=== PATIENT | female | born 1960 | race Caucasian/White ===

== ENCOUNTER → 2024-09-02 | Outpatient (CLI) | payer OTHER ==
--- NOTE | 2024-09-02 16:56 | MR ---
EXAMINATION TYPE: MR knee RT wo con DATE OF EXAM: 09/02/2024 3:09 PM COMPARISON: None. CLINICAL INDICATION: Female, 64 years old with history of M22.42 CHONDROMALACIA PATELLAE, LEFT KNEE; M42.41, Right knee pain and swelling x2 yrs but worse now, Pain also behind rt knee, Chondromalacia o f RT patella IV Contrast: cc (None if empty) TECHNIQUE: Multiplanar, multisequence imaging of the right knee is performed without IV contrast. FINDINGS: There is a small joint effusion and a 18 x 8 mm Fleming's cyst. There is no bone contusion or fracture. There is a mild strain of the medial collateral ligament. The cruciate ligaments and lateral collater al ligaments are intact. There is a tear of the body of the medial meniscus. The lateral meniscus is intact.. The articular cartilages within the medial and lateral compartments are well preserved and there is n o significant degeneration. There is mild narrowing of the patellar cartilage. There is abnormal signal intensity in the cartilag e of the lateral facet consistent with chondromalacia patella. There is subchondral edema/cystic vasquez ges in the mid patella with fissuring of the overlying cartilage. The quadriceps and patellar tendons are intact. The anterior fat pads are normal. IMPRESSION: 1. Chondromalacia patella with additional fissuring of the patellar cartilage with subchondral duarte es within the patella as described above. 2. Tear of the body of the medial meniscus. 3. Mild strain of the medial collateral ligament. 4. Small joint effusion and small Fleming cyst [facility], , 09/02/2024 4:54 PM
--- NOTE | 2024-09-03 22:51 | MR ---
EXAMINATION TYPE: MR knee LT wo con DATE OF EXAM: 09/02/2024 COMPARISON: NONE HISTORY: Left knee pain and swelling x2 yrs but worse now, Chondromalacia of Lt patella, TECHNIQUE: Multiplanar, multisequence images of the knee is performed without IV contrast. FINDINGS: MEDIAL MENISCUS: Subtle horizontal increased signal central body into the posterior horn does not def initively extend to articular surface. LATERAL MENISCUS: Anterior and posterior horns are intact without tear. CRUCIATE LIGAMENTS: The anterior and posterior cruciate ligaments are intact and unremarkable. COLLATERAL LIGAMENTS: The medial collateral ligament and lateral collateral ligament complex are inta ct and unremarkable. EXTENSOR MECHANISM: Visualized quadriceps and patellar tendons are intact. EFFUSION: Small size suprapatellar joint effusion. POPLITEAL CYST: Tiny popliteal/jones cyst. TRICOMPARTMENT SPACES: Moderate narrowing with mild to moderate spurring patellofemoral compartment. Mild narrowing and spurring medial tibiofemoral compartment. CARTILAGE: Chondromalacia patella with areas of near full-thickness cartilaginous loss noted along po sterior patellar pole. BONE MARROW SIGNAL: No focal abnormal marrow signal is appreciated. OTHER: No additional significant abnormality is appreciated. IMPRESSION: 1. At least moderate patellofemoral joint arthropathy is seen as detailed above. 2. Small-size suprapatellar joint effusion. 3. Intrasubstance tear central body into the posterior horn of the medial meniscus. No full-thickness meniscal or ligamentous tear is seen. 4. Tiny popliteal cyst. [facility], Workstation: [id number], 09/03/2024 10:49 PM
== END | disposition home or self-care (01) ==
LOC: RADMRIMAIN 13:56
PROVIDERS: ATTEND Orthopaedic Surgery
DX: S83.241A Other tear of medial meniscus, current injury, right knee, initial encounter (principal); M22.42 Chondromalacia patellae, left knee; M22.41 Chondromalacia patellae, right knee; M71.21 Synovial cyst of popliteal space [Baker], right knee; M25.461 Effusion, right knee; M25.462 Effusion, left knee; X58.XXXA Exposure to other specified factors, initial encounter; M17.0 Bilateral primary osteoarthritis of knee

== ENCOUNTER → 2025-04-18 | Outpatient (CLI) | payer OTHER ==
--- NOTE | 2025-04-18 16:22 | MM ---
Reason for Exam: Clinical finding. Patient History: Menarche at age 11. First Full-Term at age 24. Hysterectomy at age 42. Postmenopausal. Bilateral Reduction. MG pre op needle loc LT - 2 on the Left side. US breast fine needle asp - 2 on the Left side. Paternal grandmother had breast cancer. Risk Values: Keily 5 year model risk: 2.3%. NCI Lifetime model risk: 9.7%. Prior Study Comparison: No prior studies available for comparison. Tissue Density: The breasts are heterogeneously dense, which may obscure small masses. Findings: Analyzed By CAD. Benign oil cyst calcifications on the left. Possible subtle area of distortion central inner left breast middle depth may correspond to site of patient's previous benign breast excision. However, an initial views, no persisting abnormality is seen. Bilateral areas of asymmetric density do not clearly show persisting abnormality. Status post bilateral reduction mammoplasty. No suspicious microcalcification is seen. No priors available for comparison. Overall Assessment: Probably benign, BI-RAD 3 Management: Diagnostic Mammogram of both breasts in 6 months. Given patient's breast complexity and as no priors are available for comparison. Further clinical management of patient's breast pain. Results were given to the patient verbally at the time of exam. Patient should continue monthly self-breast exams. A clinical breast exam by your physician is recommended on an annual basis. This exam should not preclude additional follow-up of suspicious palpable abnormalities. Note on Keily scores and lifetime risk: 1. A Keily score greater than 3% is considered moderate risk. If this is the case, consider specialist referral to assess eligibility for a risk reducing agent. 2. If overall lifetime risk for the development of breast cancer is 20% or higher, the patient may qualify for future screening with alternating mammogram and breast MRI. [facility], , 04/18/2025 4:19 PM. Electronically signed and approved by: Tyler Croft M.D. Radiologist
== END | disposition home or self-care (01) ==
LOC: RADMAMWWP 14:44
PROVIDERS: ATTEND Family Medicine
DX: N64.4 Mastodynia (principal); R92.333 Mammographic heterogeneous density, bilateral breasts; R92.1 Mammographic calcification found on diagnostic imaging of breast; Z78.0 Asymptomatic menopausal state; Z80.3 Family history of malignant neoplasm of breast
CPT/HCPCS: 77062; 77066